=== PATIENT | female | born 1960 | race Caucasian/White ===

== ENCOUNTER 2020-08-08 09:33 | Inpatient (IN) | payer OTHER ==
[~2020-08-08] VITALS: Ht 167.6 cm; Wt 86.9 kg
[2020-08-08] MEDS ORDERED: HYDROcodone-ACET 5/325MG TAB PO ONE (15:15)
[2020-08-08] MEDS ORDERED: TETANUS-DIPTH-ACEL PERTUSSIS 0.5ML SYR Tdap IM ONE (15:30)
[2020-08-08] MEDS ORDERED: ceFAZolin 1GM/50ML 50 ML IV ONE (15:30)
[2020-08-08] MEDS ORDERED: SODIUM CHLORIDE 0.9% 1,000 ML IV ONE (15:30)
[2020-08-08] MEDS ORDERED: fentaNYL CITRATE 100 MCG/2 ML VL IV ONE (15:30)
[2020-08-08 18:54] LABS: Basophils # (auto) 0 10 ^3/uL (0-0.2); Basophils % (auto) 0.4 % (0.0-2.0); Eosinophils # (auto) 0 10 ^3/uL (0-0.8); Eosinophils % (auto) 0.1 % (0.0-7.0); Hematocrit 35.6 % (36.0-46.0); Hemoglobin 12.1 g/dL (12.2-16.2); Lymphocytes # (auto) 1.8 10 ^3/uL (0.4-5.4); Lymphocytes % (auto) 20.6 % (10.0-50.0); Mean Corpuscular Hemoglobin 32.5 pg (28.0-32.0); Mean Corpuscular Hgb Conc. 33.9 g/dL (32.0-36.0); Mean Corpuscular Volume 95.8 fL (80.0-100.0); Monocytes # (auto) 0.7 10 ^3/uL (0-1.3); Neutrophils # (auto) 6.1 10 ^3/uL (1.6-8.6); Neutrophils % (auto) 70.9 % (37.0-80.0); Platelet Count (auto) 320 10^3/uL (140-450); Red Blood Cells 3.71 10^6/uL (4.0-5.20); Red Cell Distribution Width 13.9 % (11.8-14.3); White Blood Cell 8.6 10^3/uL (4.4-10.8)
[2020-08-08 19:11] LABS: Potassium 4.9 mmol/L (3.5-5.1)
[2020-08-08 19:16] LABS: Bilirubin, Total 1.3 mg/dL (0.2-1.0); Total Protein 7.6 g/dL (6.4-8.2)
[2020-08-08 19:22] LABS: INR 1.08 (0.9-1.15)
[2020-08-08] MEDS ORDERED: ACETAMINOPHEN 325 MG TAB PO PRN (20:30)
[2020-08-08] MEDS ORDERED: DEXTROSE (50%) 50ML SYRG IV PRN (20:30)
[2020-08-08 20:34] LABS: Urine Bacteria NONE SEEN /hpf (None Seen); Urine Blood Negative /uL (Negative); Urine Mucus FEW (None Seen); Urine Specific Gravity 1.028 (1.001-1.035); Urine WBC 1 /hpf (0 - 5)
[2020-08-08] MEDS ORDERED: ONDANSETRON HCL 4 MG/2 ML VIAL IM ONE (20:45)
[2020-08-08] MEDS ORDERED: MORPHINE SULFATE 4 MG/ML SYR/VIAL IV ONE (20:45)
[2020-08-08] MEDS: ceFAZolin 1GM/50ML 100 ML IV SCH (21:14)
[2020-08-08] MEDS: SODIUM CHLORIDE 0.9% 1,000 ML IV SCH (21:38)
[2020-08-09] MEDS: InsuLIN REG 1unit/0.01ml Soln (100units/ml) SC SCH ×6 (00:32→23:29)
[2020-08-09] MEDS: ACCU-CHEK COMFORT CURVE STRIP VI SCH ×5 (00:34→23:29)
[2020-08-09] MEDS: ONDANSETRON HCL 4 MG/2 ML VIAL IV PRN ×2 (01:20→19:56)
[2020-08-09] MEDS: MORPHINE SULF INJ 2 MG/ML SYRINGE 1ML IV PRN ×3 (01:21→19:56)
[2020-08-09] MEDS: ceFAZolin 1GM/50ML 100 ML IV SCH ×3 (03:14→15:00)
[2020-08-09] MEDS: HYDROcodone-ACET 5/325MG TAB PO PRN (03:14)
[2020-08-09 07:42] LABS: Basophils # (auto) 0.1 10 ^3/uL (0-0.2); Basophils % (auto) 0.7 % (0.0-2.0); Eosinophils # (auto) 0.1 10 ^3/uL (0-0.8); Eosinophils % (auto) 1.2 % (0.0-7.0); Hematocrit 33.1 % (36.0-46.0); Hemoglobin 11.2 g/dL (12.2-16.2); Lymphocytes # (auto) 2.6 10 ^3/uL (0.4-5.4); Lymphocytes % (auto) 33.3 % (10.0-50.0); Mean Corpuscular Hemoglobin 32.4 pg (28.0-32.0); Mean Corpuscular Hgb Conc. 33.7 g/dL (32.0-36.0); Monocytes # (auto) 0.8 10 ^3/uL (0-1.3); Monocytes % (auto) 9.7 % (0.0-12.0); Neutrophils # (auto) 4.4 10 ^3/uL (1.6-8.6); Neutrophils % (auto) 55.1 % (37.0-80.0); Platelet Count (auto) 293 10^3/uL (140-450); Red Blood Cells 3.45 10^6/uL (4.0-5.20); Red Cell Distribution Width 13.7 % (11.8-14.3); White Blood Cell 7.9 10^3/uL (4.4-10.8)
[2020-08-09 08:47] LABS: INR 1.08 (0.9-1.15); Partial Thromboplastin Time 25.6 sec (23.0-31.2)
[2020-08-09 09:39] LABS: Potassium 3.9 mmol/L (3.5-5.1)
[2020-08-09 09:58] LABS: Calcium 8.8 mg/dL (8.5-10.1)
[2020-08-09] MEDS ORDERED: BUPIVACAINE 0.25% INJ 50ML VIAL ONE (10:52)
[2020-08-09] MEDS ORDERED: TETRACAINE 1% INJ 2 ML VIAL IJ ONE (10:54)
[2020-08-09] MEDS ORDERED: MORPHINE SULF(PF) 0.5MG/ML 10ML VIAL ONE (10:56)
[2020-08-09] MEDS ORDERED: BUPIVACAINE/DEXTROSE MPF 0.75% 2 ML AMP IT ONE (10:56)
[2020-08-09] MEDS ORDERED: PROPOFOL 10 MG/ML 20 ML IV ONE (10:56)
[2020-08-09] MEDS ORDERED: SODIUM CHLORIDE LOCK 20 ML ONE (10:56)
[2020-08-09] MEDS ORDERED: fentaNYL CITRATE 100 MCG/2 ML VL ONE (10:56)
[2020-08-09] MEDS ORDERED: ONDANSETRON HCL 4 MG/2 ML VIAL ONE (10:56)
[2020-08-09] MEDS ORDERED: MIDAZOLAM HCL 1MG/1ML-2 ML VIAL ONE ×2 (10:56→12:08)
[2020-08-09] MEDS ORDERED: EPINEPHrine HCL 1 MG/1 ML AMP ONE (10:58)
[2020-08-09] MEDS ORDERED: LACTATED RINGER'S 1,000 ML IV SCH (13:30)
[2020-08-09] MEDS ORDERED: MORPHINE SULFATE 4 MG/ML SYR/VIAL IV PRN (13:45)
[2020-08-09] MEDS ORDERED: ACCU-CHEK COMFORT CURVE STRIP VI ONE (13:45)
[2020-08-09] MEDS ORDERED: NALOXONE HCL 0.4 MG/ML VIAL IV PRN (13:45)
[2020-08-09] MEDS ORDERED: HYDROmorphone HCL 2 MG/ML VL IV PRN (13:45)
[2020-08-09] MEDS ORDERED: METOCLOPRAMIDE HCL 5MG/ml INJ 2ml VIAL IV PRN (13:45)
[2020-08-09] MEDS: SODIUM CHLOR 0.9% PF (SALINE LOCK) 10ML VIAL/SYR IV SCH ×2 (14:00→23:28)
[2020-08-09 14:40] VITALS: BP 135/68
[2020-08-09 19:40] VITALS: BP 160/70
[2020-08-09] MEDS: ceFAZolin 1GM/50ML 50 ML IV SCH (19:57)
[2020-08-09 20:40] VITALS: BP 160/70
[2020-08-09 22:00] VITALS: BP 160/70
[2020-08-10] VITALS: BP 160/70
[2020-08-10] MEDS: MORPHINE SULF INJ 2 MG/ML SYRINGE 1ML IV PRN ×5 (00:59→21:13)
[2020-08-10] MEDS: ceFAZolin 1GM/50ML 50 ML IV SCH ×4 (01:01→18:40)
[2020-08-10] MEDS: HYDROcodone-ACET 5/325MG TAB PO PRN ×2 (02:49→09:39)
[2020-08-10] MEDS: ACCU-CHEK COMFORT CURVE STRIP VI SCH ×5 (03:53→21:05)
[2020-08-10] MEDS: InsuLIN REG 1unit/0.01ml Soln (100units/ml) SC SCH ×5 (03:53→21:12)
[2020-08-10 05:00] VITALS: BP 155/68
[2020-08-10] MEDS: SODIUM CHLOR 0.9% PF (SALINE LOCK) 10ML VIAL/SYR IV SCH ×3 (05:12→21:05)
[2020-08-10] MEDS: SODIUM CHLORIDE 0.9% 1,000 ML IV SCH ×2 (06:18→21:15)
[2020-08-10 08:00] VITALS: BP 129/63
[2020-08-10] MEDS: ENOXAPARIN SOD 40 MG/0.4 ML SYRINGE SC SCH (09:38)
[2020-08-10 12:00] VITALS: BP 155/70
[2020-08-10 17:00] VITALS: BP 137/62
[2020-08-11] VITALS: BP 158/74
[2020-08-11] MEDS: ACCU-CHEK COMFORT CURVE STRIP VI SCH ×6 (00:01→20:01)
[2020-08-11] MEDS: InsuLIN REG 1unit/0.01ml Soln (100units/ml) SC SCH ×6 (00:11→20:00)
[2020-08-11] MEDS: SODIUM CHLOR 0.9% PF (SALINE LOCK) 10ML VIAL/SYR IV SCH ×3 (06:00→21:30)
[2020-08-11] MEDS: ENOXAPARIN SOD 40 MG/0.4 ML SYRINGE SC SCH (08:29)
[2020-08-11] MEDS: MORPHINE SULF INJ 2 MG/ML SYRINGE 1ML IV PRN ×2 (08:29→15:40)
[2020-08-11] MEDS: SODIUM CHLORIDE 0.9% 1,000 ML IV SCH (08:29)
[2020-08-11 08:30] VITALS: BP 155/72
[2020-08-11] MEDS ORDERED: INSU1INJ27 SC (12:05)
[2020-08-11] MEDS ORDERED: INSU1INJ26 SC (12:05)
[2020-08-11 16:15] VITALS: BP 152/77
[2020-08-11] MEDS: HYDROcodone-ACET 5/325MG TAB PO PRN (17:43)
[2020-08-11] MEDS ORDERED: INSULIN LANTUS (GLARGINE) 1 /0.01ml (100units/ml) SC ONE (17:45)
[2020-08-11 22:00] VITALS: BP 157/59
[2020-08-12] VITALS (7 sets, daily range): BP systolic 140–161; BP diastolic 72–88
[2020-08-12] MEDS: ACCU-CHEK COMFORT CURVE STRIP VI SCH ×6 (00:45→20:02)
[2020-08-12] MEDS: MORPHINE SULF INJ 2 MG/ML SYRINGE 1ML IV PRN ×5 (00:46→20:03)
[2020-08-12] MEDS: InsuLIN REG 1unit/0.01ml Soln (100units/ml) SC SCH ×6 (00:46→20:03)
[2020-08-12] MEDS: SODIUM CHLOR 0.9% PF (SALINE LOCK) 10ML VIAL/SYR IV SCH ×3 (05:48→21:49)
[2020-08-12] MEDS: SODIUM CHLORIDE 0.9% 1,000 ML IV SCH (07:50)
[2020-08-12] MEDS: HYDROcodone-ACET 5/325MG TAB PO PRN ×2 (08:35→22:44)
[2020-08-12] MEDS: ENOXAPARIN SOD 40 MG/0.4 ML SYRINGE SC SCH (10:15)
[2020-08-12] MEDS: INSULIN LANTUS (GLARGINE) 1 /0.01ml (100units/ml) SC SCH (10:24)
[2020-08-12] MEDS ORDERED: cloNIDine HCL 0.1 MG TAB PO PRN (16:15)
[2020-08-13] VITALS: BP 156/78
[2020-08-13] MEDS: ACCU-CHEK COMFORT CURVE STRIP VI SCH ×6 (00:02→19:47)
[2020-08-13] MEDS: InsuLIN REG 1unit/0.01ml Soln (100units/ml) SC SCH ×6 (00:02→19:49)
[2020-08-13] MEDS: SODIUM CHLORIDE 0.9% 1,000 ML IV SCH ×2 (00:04→16:45)
[2020-08-13] MEDS: MORPHINE SULF INJ 2 MG/ML SYRINGE 1ML IV PRN ×3 (03:46→13:30)
[2020-08-13] MEDS: SODIUM CHLOR 0.9% PF (SALINE LOCK) 10ML VIAL/SYR IV SCH ×3 (05:32→21:19)
[2020-08-13 08:00] VITALS: BP 144/72
[2020-08-13] MEDS: DOCUSATE SOD 100 MG CAP PO PRN ×2 (08:51→19:47)
[2020-08-13] MEDS: ENOXAPARIN SOD 40 MG/0.4 ML SYRINGE SC SCH (10:40)
[2020-08-13] MEDS: INSULIN LANTUS (GLARGINE) 1 /0.01ml (100units/ml) SC SCH (10:48)
[2020-08-13] MEDS: HYDROcodone-ACET 5/325MG TAB PO PRN (11:00)
[2020-08-13] MEDS ORDERED: InsuLIN REG 1unit/0.01ml Soln (100units/ml) SC ONE ×2 (13:30→14:15)
[2020-08-13] MEDS ORDERED: HYDROmorphone HCL 2 MG/ML VL IV PRN (14:00)
[2020-08-13 16:00] VITALS: BP 157/74
[2020-08-13] MEDS: INSULIN 70/30 1unit/0.01ml Susp (100units/ml) SC SCH (17:30)
[2020-08-13] MEDS ORDERED: hydrALAZINE HCL 20 MG/ML VL IV PRN (18:15)
[2020-08-13] MEDS: D5W/SOD CHL 0.45% 1,000 ML IV SCH (21:19)
[2020-08-13] MEDS: diphenhdrAMINE HCL 50 MG/1 ML VL IV PRN (21:59)
[2020-08-13 22:00] VITALS: BP 129/69
[2020-08-13] MEDS: HYDROmorphone HCL 2 MG/ML VL IV PRN (22:00)
[2020-08-14] VITALS: BP 129/69
[2020-08-14] MEDS: ACCU-CHEK COMFORT CURVE STRIP VI SCH ×6 (00:09→22:16)
[2020-08-14] MEDS: InsuLIN REG 1unit/0.01ml Soln (100units/ml) SC SCH ×6 (00:10→22:19)
[2020-08-14] MEDS: HYDROmorphone HCL 2 MG/ML VL IV PRN ×5 (02:52→21:47)
[2020-08-14 05:00] VITALS: BP 128/76
[2020-08-14 05:30] VITALS: BP 128/76
[2020-08-14] MEDS: SODIUM CHLOR 0.9% PF (SALINE LOCK) 10ML VIAL/SYR IV SCH ×3 (06:00→21:46)
[2020-08-14 08:00] VITALS: BP 145/74
[2020-08-14] MEDS ORDERED: INSULIN 70/30 1unit/0.01ml Susp (100units/ml) SC SCH (08:00)
[2020-08-14] MEDS: ENOXAPARIN SOD 40 MG/0.4 ML SYRINGE SC SCH (08:33)
[2020-08-14] MEDS: diphenhdrAMINE HCL 50 MG/1 ML VL IV PRN ×2 (10:42→21:47)
[2020-08-14 16:00] VITALS: BP 148/67
[2020-08-14] MEDS: INSULIN 70/30 1unit/0.01ml Susp (100units/ml) SC SCH (16:23)
[2020-08-14] MEDS: D5W/SOD CHL 0.45% 1,000 ML IV SCH (17:21)
[2020-08-14] MEDS: DOCUSATE SOD 100 MG CAP PO PRN (21:47)
[2020-08-14 22:00] VITALS: BP 153/79
[2020-08-14] MEDS ORDERED: ACCU-CHEK COMFORT CURVE STRIP VI SCH (22:00)
[2020-08-14] MEDS ORDERED: DEXTROSE (50%) 50ML SYRG IV PRN (22:15)
[2020-08-15] MEDS: D5W/SOD CHL 0.45% 1,000 ML IV SCH ×2 (03:18→20:15)
[2020-08-15] MEDS: HYDROmorphone HCL 2 MG/ML VL IV PRN ×5 (04:46→21:26)
[2020-08-15 05:00] VITALS: BP 146/69
[2020-08-15] MEDS: SODIUM CHLOR 0.9% PF (SALINE LOCK) 10ML VIAL/SYR IV SCH ×3 (06:13→21:26)
[2020-08-15] MEDS: ACCU-CHEK COMFORT CURVE STRIP VI SCH ×4 (06:13→21:26)
[2020-08-15] MEDS: InsuLIN REG 1unit/0.01ml Soln (100units/ml) SC SCH ×4 (06:14→21:27)
[2020-08-15 08:00] VITALS: BP 148/59
[2020-08-15] MEDS: INSULIN 70/30 1unit/0.01ml Susp (100units/ml) SC SCH ×2 (08:38→17:36)
[2020-08-15] MEDS: ENOXAPARIN SOD 40 MG/0.4 ML SYRINGE SC SCH (08:38)
[2020-08-15] MEDS: diphenhdrAMINE HCL 50 MG/1 ML VL IV PRN (11:48)
[2020-08-15 16:00] VITALS: BP 143/65
[2020-08-15 22:00] VITALS: BP 148/69
[2020-08-16] VITALS (7 sets, daily range): BP systolic 59–159; BP diastolic 67–83
[2020-08-16] MEDS: HYDROmorphone HCL 2 MG/ML VL IV PRN ×5 (05:24→22:27)
[2020-08-16] MEDS: DOCUSATE SOD 100 MG CAP PO PRN (05:24)
[2020-08-16] MEDS: SODIUM CHLOR 0.9% PF (SALINE LOCK) 10ML VIAL/SYR IV SCH ×3 (05:25→22:27)
[2020-08-16] MEDS: ACCU-CHEK COMFORT CURVE STRIP VI SCH ×4 (06:08→22:27)
[2020-08-16] MEDS: InsuLIN REG 1unit/0.01ml Soln (100units/ml) SC SCH ×4 (06:31→22:00)
[2020-08-16] MEDS: INSULIN 70/30 1unit/0.01ml Susp (100units/ml) SC SCH ×2 (08:20→18:14)
[2020-08-16] MEDS: ENOXAPARIN SOD 40 MG/0.4 ML SYRINGE SC SCH (09:57)
[2020-08-16] MEDS: D5W/SOD CHL 0.45% 1,000 ML IV SCH (12:55)
[2020-08-16] MEDS: diphenhdrAMINE HCL 50 MG/1 ML VL IV PRN ×2 (15:48→19:53)
[2020-08-17] MEDS: diphenhdrAMINE HCL 50 MG/1 ML VL IV PRN (00:09)
[2020-08-17] MEDS: HYDROmorphone HCL 2 MG/ML VL IV PRN ×3 (03:46→13:15)
[2020-08-17] MEDS: D5W/SOD CHL 0.45% 1,000 ML IV SCH (04:57)
[2020-08-17] MEDS: ACCU-CHEK COMFORT CURVE STRIP VI SCH ×2 (05:18→11:40)
[2020-08-17] MEDS: SODIUM CHLOR 0.9% PF (SALINE LOCK) 10ML VIAL/SYR IV SCH ×2 (05:18→15:16)
[2020-08-17] MEDS: InsuLIN REG 1unit/0.01ml Soln (100units/ml) SC SCH ×2 (05:22→12:14)
[2020-08-17 05:24] VITALS: BP 150/67
[2020-08-17 08:00] VITALS: BP 159/76
[2020-08-17] MEDS: INSULIN 70/30 1unit/0.01ml Susp (100units/ml) SC SCH (08:03)
[2020-08-17] MEDS: ENOXAPARIN SOD 40 MG/0.4 ML SYRINGE SC SCH (10:35)
[2020-08-17 17:00] VITALS: BP 152/74
== END 2020-08-17 16:40 | disposition home health service (06) | DRG 494 ==
LOC: ER 09:33 → EDBD 09:33 → OVERFLOW 09:34 → TELE-CENTR 08-09 19:42
PROVIDERS: ADMIT Hospitalist; ATTEND Family Medicine
PROC: 0SSF3ZZ Reposition Right Ankle Joint, Percutaneous Approach (ICD-10-PCS; 2020-08-09)
PROC: 0QSJ04Z Reposition Right Fibula with Internal Fixation Device, Open Approach (ICD-10-PCS; principal; 2020-08-09 11:42)
DX: S82.851B Displaced trimalleolar fracture of right lower leg, initial encounter for open fracture type I or II (principal); Z20.822 Contact with and (suspected) exposure to COVID-19; I10 Essential (primary) hypertension; E66.01 Morbid (severe) obesity due to excess calories; F32.9 Major depressive disorder, single episode, unspecified; W01.0XXA Fall on same level from slipping, tripping and stumbling without subsequent striking against object, initial encounter; Y93.89 Activity, other specified; Y99.8 Other external cause status; Y92.002 Bathroom of unspecified non-institutional (private) residence as the place of occurrence of the external cause; Z68.35 Body mass index [BMI] 35.0-35.9, adult
CPT/HCPCS: 36415; 51702; 71045; 73600; 73610; 76000; 80048; 80053; 80061; 81001; 82962; 83036; 85025; 85610; 85730; 86850; 86900; 86901; 87426; 90471; 90715; 96365; 96366; 96367; 96372; 96375; 97110; 97116; 97163; 97530; G0378; J0171; J0690; J1815; J2250; J2405; J2704; J3490

== ENCOUNTER 2024-02-15 18:17 | Emergency (ER) | payer OTHER ==
[~2024-02-15] VITALS: Ht 172.7 cm; Wt 118.0 kg
[~2024-02-15 18:17] MED LIST: INSU1INJ26 SC; INSU1INJ27 SC
[2024-02-15 19:09] LABS: Urine Bacteria None Seen /hpf (None Seen)
[2024-02-15] MEDS: SODIUM CHLORIDE 0.9% 1,000 ML IV ONE (19:10)
[2024-02-15] MEDS ORDERED: DEXTROSE (50%) 50ML SYRG IV PRN (19:15)
[2024-02-15 19:18] LABS: Urine Blood 2+ /uL (Negative); Urine Clarity Clear (Clear); Urine Color Light-Yellow (Yellow); Urine Hyaline Cast FEW /lpf (0 - 2); Urine Protein, UAD 1+ (Negative); Urine Specific Gravity 1.024 (1.001-1.035); Urine Urobilinogen Normal (Negative); Urine WBC <1 /hpf (0 - 5); Urine pH 5.5 (5.0-9.0)
[2024-02-15] MEDS: InsuLIN REG 1unit/0.01ml Soln (100units/ml) IV ONE (19:19)
[2024-02-15 19:29] LABS: Basophils # (auto) 0.1 10 ^3/uL (0-0.2); Eosinophils # (auto) 0 10 ^3/uL (0-0.8); Eosinophils % (auto) 0.1 % (0.0-7.0); Lymphocytes % (auto) 20.8 % (10.0-50.0); Nucleated Red Blood Cells % 0.2 %
[2024-02-15 19:30] VITALS: RESP 26; O2SAT 98
[2024-02-15 19:31] LABS: Basophils % (auto) 0.7 % (0.0-2.0); Hematocrit 51.2 % (36.0-46.0); Hemoglobin 15.3 g/dL (12.2-16.2); Lymphocytes # (auto) 3.3 10 ^3/uL (0.4-5.4); Mean Corpuscular Hemoglobin 32.2 pg (28.0-32.0); Mean Corpuscular Hgb Conc. 29.9 g/dL (32.0-36.0); Mean Corpuscular Volume 107.8 fL (80.0-100.0); Monocytes # (auto) 0.8 10 ^3/uL (0-1.3); Neutrophils # (auto) 11.6 10 ^3/uL (1.6-8.6); Neutrophils % (auto) 73.4 % (37.0-80.0); Red Blood Cells 4.75 10^6/uL (4.0-5.20); Red Cell Distribution Width 14.7 % (11.8-14.3); White Blood Cell 15.9 10^3/uL (4.4-10.8)
[2024-02-15] MEDS: INSULIN LANTUS (GLARGINE) 1 /0.01ml (100units/ml) SC ONE (19:39)
[2024-02-15] MEDS: ACCU-CHEK COMFORT CURVE STRIP VI SCH (19:45)
[2024-02-15 19:51] LABS: Platelet Estimate Adequate
[2024-02-15 19:52] LABS: Macrocytosis Moderate
[2024-02-15] MEDS: INSULIN DRIP 100 UNIT/100ML 100 ML IV SCH (19:55)
[2024-02-15 20:00] LABS: Alanine Aminotransferase 29 U/L (7-40); Albumin 4.4 g/dL (3.2-4.8); Alkaline Phosphatase 161 U/L (46-116); Anion Gap 21.00001 (5-15); Aspartate Aminotransferase 40 U/L (13-40); Bilirubin, Total 0.4 mg/dL (0.2-1.0); Blood Urea Nitrogen 18 mg/dL (9-23); Calcium 9.5 mg/dL (8.7-10.4); Chloride 102 mmol/L (98-107); Sodium 133 mmol/L (136-145)
[2024-02-15 20:03] LABS: Magnesium 2.6 mg/dL (1.6-2.6)
[2024-02-15 20:05] LABS: Phosphorus 7.8 mg/dL (2.4-5.1)
[2024-02-15 20:06] LABS: Carbon Dioxide < 10 mmol/L (20-30); Glucose 642 mg/dL (74-106); Potassium 6.8 mmol/L (3.5-5.1)
[2024-02-15 20:06] LABS: Lactic Acid w/Reflex 3.4 mmol/L (0.4-2.0)
[2024-02-15] MEDS: SODIUM CHLORIDE 0.9% 1,000 ML IV SCH ×2 (20:15→23:17)
[2024-02-15] MEDS: ALBUTEROL SULF 2.5 MG/0.5ML(0.5%) NEB SOLN NEB ONE (20:30)
[2024-02-15] MEDS ORDERED: SODIUM ZIRCONIUM CYCL 10 GM PAK PO ONE (20:30)
[2024-02-15] MEDS: ALBUTEROL SULF 2.5 MG/0.5ML(0.5%) NEB SOLN ONE (20:37)
[2024-02-15] MEDS: SODIUM BICARB 8.4% 50Meq/50ml SYR Vial IV ONE (20:59)
[2024-02-15] MEDS: CALCIUM GLUC 1,000mg/50ml-NS 50 ML IV ONE (20:59)
[2024-02-16 00:55] VITALS: BP 123/51; PULSE 117; RESP 28; TEMP 99.1; O2SAT 99
[2024-02-16] MEDS ORDERED: SODIUM CHLORIDE 0.9% 1,000 ML IV SCH (01:15)
[2024-02-16] MEDS ORDERED: INSULIN LANTUS (GLARGINE) 1 /0.01ml (100units/ml) SC SCH (10:00)
== END 2024-02-16 01:06 | disposition short-term general hospital (02) ==
LOC: ER 18:17 → EDBD 18:17 → ER 02-16 01:06
DX: E11.10 Type 2 diabetes mellitus with ketoacidosis without coma (principal); G93.41 Metabolic encephalopathy; G91.9 Hydrocephalus, unspecified; I10 Essential (primary) hypertension; Z79.899 Other long term (current) drug therapy
CPT/HCPCS: 36415; 36600; 70450; 71045; 80053; 81001; 82010; 82805; 82962; 83605; 83735; 83880; 83930; 84100; 84484; 85025; 87040; 93005; 94640; 96361; 96365; 96366; 96368; 96372; 96375; 96376; 99285; J0613; J1815; J7030